=== PATIENT | male | born 1935 | race Caucasian/White ===

== ENCOUNTER 2018-04-14 00:01 | Emergency (ER) | payer MEDICARE, OTHER ==
[~2018-04-14] VITALS: Ht 175.3 cm; Wt 107.5 kg
[~2018-04-14 00:01] MED LIST: AMIO200T40 PO; ASPI81TA52 PO; ATOR10TA70 PO; CHOL400C8 PO; METO-395 PO; MULT-1074 PO; ONDA4TAB12 PO; TERA1CAP4 PO
[2018-04-14 00:24] VITALS: BP 138/70
[2018-04-14] MEDS ORDERED: AMOX-580 PO (02:43)
[2018-04-14] MEDS ORDERED: TETanus/Pertussis (Acell)/Diphther VAC/PF (Tdap-Adult) 0.5ml syringe IM ONE (02:45)
[2018-04-14] MEDS ORDERED: amox tr/potassium clavulanate 875/125mg TAB PO ONE (02:45)
== END 2018-04-14 03:18 | disposition home or self-care (01) ==
LOC: ER 00:02
DX: S60.571A Other superficial bite of hand of right hand, initial encounter (principal); L03.113 Cellulitis of right upper limb; E78.00 Pure hypercholesterolemia, unspecified; I10 Essential (primary) hypertension; G62.9 Polyneuropathy, unspecified; Z79.899 Other long term (current) drug therapy; W54.0XXA Bitten by dog, initial encounter; Y93.89 Activity, other specified; Y92.89 Other specified places as the place of occurrence of the external cause; Y99.8 Other external cause status
CPT/HCPCS: 90471; 90715; 99283

== ENCOUNTER 2021-05-31 18:43 | Emergency (ER) | payer OTHER, MEDICARE ==
[~2021-05-31] VITALS: Ht 172.7 cm; Wt 106.4 kg
[~2021-05-31 18:43] MED LIST changes: -AMIO200T40 PO; +AMIO200T61 PO
[2021-05-31 18:45] VITALS: BP 176/98
[2021-05-31 23:25] LABS: BASOPHILS # (AUTO) 0.1 X10'3 (0-0.2); EOSINOPHILS # (AUTO) 0.1 X10'3 (0-0.9); HEMOGLOBIN 14.5 g/dl (14.0-17.9); LYMPHOCYTES # (AUTO) 2.4 X10'3 (1.1-4.8); MEAN CORPUSCULAR VOLUME 95.5 FL (78-98); MONOCYTES # (AUTO) 0.6 X10'3 (0-0.9)
[2021-05-31 23:27] LABS: BASOPHILS % (AUTO) 0.6 % (0-1); EOSINOPHILS % (AUTO) 1.1 % (0-6); HEMATOCRIT 43.6 % (42.0-52.0); MEAN CORPUSCULAR HEMOGLOBIN 31.7 PG (27.0-31.0); MEAN CORPUSCULAR HGB CONC 33.2 g/dL (33.0-36.5); MEAN PLATELET VOLUME 8.9 FL (7.4-10.4); NEUTROPHILS # (AUTO) 5.2 X10'3 (1.8-7.7); NEUTROPHILS % (AUTO) 62.3 % (42-75); PLATELET COUNT 102 X10'3 (140-440); RED BLOOD COUNT 4.57 X10'6 (4.70-6.10); RED CELL DISTRIBUTION WIDTH 15.3 % (11.5-14.5); WHITE BLOOD COUNT 8.3 X10'3 (4.5-11.0)
[2021-05-31 23:47] LABS: ALANINE AMINOTRANSFERASE 54 U/L (12-78); ALBUMIN/GLOBULIN RATIO 1.2 (1.1-1.5); ALKALINE PHOSPHATASE 78 IU/L (46-116); ANION GAP 9 (8-16); ASPARTATE AMINO TRANSFERASE 72 U/L (10-37); BILIRUBIN,TOTAL 1.1 MG/DL (0.1-1.0); BLOOD UREA NITROGEN 17 MG/DL (7-18); BUN/CREATININE RATIO 16.7 (5.4-32.0); CHLORIDE 104 MMOL/L (99-107); CREATININE 1.02 MG/DL (0.60-1.10); GLUCOSE 106 MG/DL (70-104); POTASSIUM 3.8 MMOL/L (3.5-5.1); SODIUM 142 MMOL/L (135-145); TOTAL CARBON DIOXIDE 29.2 MMOL/L (24-32); TOTAL PROTEIN 7.3 G/DL (6.4-8.2); eGFR 69 ML/MIN
[2021-05-31 23:51] LABS: BILIRUBIN,DIRECT 0.3 MG/DL (0-0.3); LIPASE 100 U/L (73-393)
== END 2021-06-01 00:36 | disposition left against medical advice (07) ==
LOC: ER 18:43
DX: T67.5XXA Heat exhaustion, unspecified, initial encounter (principal); Z20.822 Contact with and (suspected) exposure to COVID-19; R41.82 Altered mental status, unspecified; F41.9 Anxiety disorder, unspecified; R68.2 Dry mouth, unspecified; E78.00 Pure hypercholesterolemia, unspecified; I10 Essential (primary) hypertension; J44.9 Chronic obstructive pulmonary disease, unspecified; Z79.82 Long term (current) use of aspirin; Z79.899 Other long term (current) drug therapy; X58.XXXA Exposure to other specified factors, initial encounter; Y93.89 Activity, other specified; Y92.89 Other specified places as the place of occurrence of the external cause; Y99.8 Other external cause status
CPT/HCPCS: 36415; 70450; 71045; 80048; 80076; 82948; 83690; 84484; 85025; 87635; 93005; 99285; C9803